=== PATIENT | male | born 1990 | race Caucasian/White ===

== ENCOUNTER 2023-02-19 20:09 | Emergency (ER) | payer SELFPAY ==
[~2023-02-19] VITALS: Ht 170.2 cm; Wt 100.0 kg
[2023-02-19 20:19] VITALS: O2SAT 100
[2023-02-19 21:15] VITALS: BP 164/88
[2023-02-19] MEDS ORDERED: KETOROLAC 30MG/ML VIAL IM ONE (21:15)
[2023-02-19] MEDS ORDERED: NAPR-679 MT (22:06)
[2023-02-19 22:24] VITALS: PULSE 100; RESP 20; TEMP 98.2
== END 2023-02-19 22:29 | disposition home or self-care (01) ==
LOC: ER 20:09
DX: S93.401A Sprain of unspecified ligament of right ankle, initial encounter (principal); M79.671 Pain in right foot; X58.XXXA Exposure to other specified factors, initial encounter; Y93.89 Activity, other specified; Y92.89 Other specified places as the place of occurrence of the external cause; Y99.8 Other external cause status
CPT/HCPCS: 73590; 73610; 73630; 29515; 96372; 99284; J1885; Z7610